=== PATIENT | female | born 1945 | race Caucasian/White ===

== ENCOUNTER 2017-04-05 08:28 | Day surgery (SDC) | payer MEDICARE ==
--- NOTE | ~2017-04-05 | EGD ---
EGD REPORT [facility] [address] [place] [address] NAME: VA DRAKE : [birth year] STATUS : REG [facility]#: [id number] AGE: 71 ADM/REG DATE : 04/05/17 MR#: [id number] REPORT SERV DATE: 04/05/17 DICTATED BY: SARAH MUSTAFA DATE: 04/05/17 REPORT STATUS : Draft TRANSCRIBED BY: [employer] DATE: 04/05/17 [facility] Center Patient Name: Va Drake Date of : 1945 Attending MD: SARAH MUSTAFA MD Procedure Date No Time: 04/05/2017 Procedure: Colonoscopy Indications: Clinically significant diarrhea of unexplained origin, FH of Colonic Polyps - 1st degree relative Referring MD: SHANTI GAMING Medicines: as per anesthesia Complications: No immediate complications. Procedure: Pre-Anesthesia Assessment: - ASA Grade Assessment: III - A patient with severe systemic disease. After I obtained informed consent, the scope was passed under direct vision. Throughout the procedure, the patient's blood pressure, pulse, and oxygen saturations were monitored continuously. The PCF [id number] was introduced through the anus and advanced to the cecum, identified by appendiceal orifice and ileocecal valve. The colonoscopy was somewhat difficult due to significant looping and a tortuous colon. The patient tolerated the procedure. The quality of the bowel preparation was adequate to identify polyps. Findings: The perianal and digital rectal examinations were normal. Internal hemorrhoids were found during endoscopy and were mild. Four biopsies were obtained in the rectum and in the ascending colon with cold forceps for histology. A few small-mouthed diverticula were found in the sigmoid colon. Impression: - Internal hemorrhoids. - Diverticulosis in the sigmoid colon. - Four biopsies were obtained in the rectum and in the ascending colon. Recommendation: - Await pathology results. - Repeat colonoscopy in 5 years for surveillance. Procedure Code(s): --- Professional --- 27743, Colonoscopy, flexible, proximal to splenic flexure; with biopsy, single or multiple EGD REPORT [facility] [address] [place] [address] NAME: VA DRAKE : [birth year] STATUS : REG [facility] PAT#: [id number] AGE: 71 ADM/REG DATE : 04/05/17 MR#: [id number] REPORT SERV DATE: 04/05/17 DICTATED BY: SARAH MUSTAFA DATE: 04/05/17 REPORT STATUS : Draft TRANSCRIBED BY: [employer] DATE: 04/05/17 Diagnosis Code(s): --- Professional --- K64.8, Other hemorrhoids K57.30, Diverticulosis of large intestine without perforation or abscess without bleeding R19.7, Diarrhea, unspecified Z83.71, Family history of colonic polyps CPT copyright 2013 [employer]. All rights reserved. The codes documented in this report are preliminary and upon machine filler shredder review may be revised to meet current compliance requirements. SARAH MUSTAFA MD 04/05/2017 11:31 AM This report has been signed electronically. Number of Addenda: 0 Note Initiated On: 04/05/2017 10:55 AM Scope Withdrawal Time 0 hours 8 minutes 16 seconds [address] [place] [address]
[~2017-04-05 08:28] MED LIST: ACET500CAP PO; ASAB PO; BYSTOLIC5 MG PO; CYANO1000T PO; DIOV160 PO; FERROUS SULF325 M1 PO; FOLIC PO; GLUCOPHAGE1000 MG PO; GLUCPH PO; GLUCXL5 PO; HALF81 PO; HYDROCODONE/APAP PO/LIQ; IRON PO; MEVACOR40 MG PO; NEUR300 PO; NEUR600 PO; OMNICEF300 PO; POTASSIUM PO; PRILO PO; REFRESH OPH; VENTOLIN HFA INH; VITAMIN B-122500 MCG SL; VITAMIN D31000 UNIT PO; X5 PO; ZINC GLUCON50 MG PO; ZITH250 PO; ZOL100 PO
== END 2017-04-05 23:59 | disposition home or self-care (01) ==
LOC: DMU 08:28
PROVIDERS: Internal Medicine Gastroenterology
PROC: 0DBK8ZX Excision of Ascending Colon, Via Natural or Artificial Opening Endoscopic, Diagnostic (ICD-10-PCS; 2017-04-05)
PROC: 0DBP8ZX Excision of Rectum, Via Natural or Artificial Opening Endoscopic, Diagnostic (ICD-10-PCS; principal; 2017-04-05 09:30)
DX: K64.8 Other hemorrhoids (principal); K57.30 Diverticulosis of large intestine without perforation or abscess without bleeding; G47.33 Obstructive sleep apnea (adult) (pediatric); E11.9 Type 2 diabetes mellitus without complications; I10 Essential (primary) hypertension; D64.9 Anemia, unspecified; K21.9 Gastro-esophageal reflux disease without esophagitis; E78.00 Pure hypercholesterolemia, unspecified; I34.1 Nonrheumatic mitral (valve) prolapse; Z98.41 Cataract extraction status, right eye; Z83.71 Family history of colonic polyps; Z98.42 Cataract extraction status, left eye; Z90.710 Acquired absence of both cervix and uterus; Z98.890 Other specified postprocedural states; Z87.01 Personal history of pneumonia (recurrent)
CPT/HCPCS: 82962; 88305

== ENCOUNTER 2017-07-16 22:40 | Emergency (ER) | payer MEDICARE ==
[2017-07-17 03:47] LABS: BASOPHILS 0.1 %; BASOPHILS 0.3 %; BASOPHILS ABSOLUTE 0.01 10/3/uL (0.0-0.16); BASOPHILS ABSOLUTE 0.02 10/3/uL (0.0-0.16); EOSINOPHILS 7.1 %; EOSINOPHILS 7.2 %; EOSINOPHILS ABSOLUTE 0.49 10/3/uL (0.0-0.53); HEMATOCRIT 32.8 % (36.0-48.0); HEMATOCRIT 33.6 % (36.0-48.0); HEMOGLOBIN 10.6 g/dL (12.0-16.0); HEMOGLOBIN 10.8 g/dL (12.0-16.0); IMMATURE GRANULOCYTES 0.1 %; IMMATURE GRANULOCYTES ABSOLUTE 0.01 10/3/uL (0.0-0.11); LYMPHOCYTES 29.4 %; LYMPHOCYTES ABSOLUTE 1.97 10/3/uL (0.67-4.30); LYMPHOCYTES ABSOLUTE 2.03 10/3/uL (0.67-4.30); MEAN CORPUS HGB CONC 32.9 g/dL (32.0-36.0); MEAN CORPUSCULAR HEMOGLOB 29.7 pg (26.0-34.0); MEAN CORPUSCULAR HEMOGLOB 30.9 pg (26.0-34.0); MEAN CORPUSCULAR VOLUME 94.1 fL (80-100); MEAN PLATELET VOLUME 8.3 fL (9.2-13.0); MEAN PLATELET VOLUME 8.5 fL (9.2-13.0); MONOCYTES 8.5 %; MONOCYTES ABSOLUTE 0.55 10/3/uL (0.21-1.20); MONOCYTES ABSOLUTE 0.58 10/3/uL (0.21-1.20); NEUTROPHILS 55.1 %; NEUTROPHILS ABSOLUTE 3.74 10/3/uL (2.02-8.40); PLATELET COUNT 160 10/3/uL (150-400); PLATELET COUNT 163 10/3/uL (150-400); RBC DISTRIBUTION WIDTH 13.6 % (12.0-16.0); RBC DISTRIBUTION WIDTH 13.7 % (12.0-16.0); RED CELL COUNT 3.49 10/6/uL (4.0-5.6); RED CELL COUNT 3.57 10/6/uL (4.0-5.6); WHITE BLOOD CELLS 6.8 10/3/uL (4.5-10.5); WHITE BLOOD CELLS 6.9 10/3/uL (4.5-10.5)
[2017-07-17 03:48] LABS: ER CBC TAT 0 Hrs 06 MinsNP; MANUAL DIFF NO %; MEAN CORPUS HGB CONC 31.5 g/dL (32.0-36.0)
[2017-07-17 03:56] LABS: INTERNATIONAL NORMAL RATI 0.9 UNITS (-); PARTIAL THROMBO TIME 26.1 SEC (22.5-37.2); PROTIME (NOT ORD) 12.3 SEC (12.0-14.5)
[2017-07-17 04:01] LABS: ALKALINE PHOSPHATASE 85 U/L (45-117); BUN (BLOOD UREA NITROGEN) 8 MG/DL (6-23); CALCIUM, SERUM 8.4 MG/DL (8.5-10.4); CALCIUM, SERUM 8.5 MG/DL (8.5-10.4); CHEST PAIN PROFILE TAT 0 Hrs 20 Mins; CHLORIDE, SERUM 94 MMOL/L (96-112); CHLORIDE, SERUM 95 MMOL/L (96-112); CO2 (CARBON DIOXIDE) 30 MMOL/L (24-34); CREATININE 0.96 MG/DL (0.55-1.02); CREATININE 0.97 MG/DL (0.55-1.02); GFR AFRICAN AMERICAN 67 ML/MIN (>=60); GFR AFRICAN AMERICAN 68 ML/MIN (>=60); GFR NON AFRICAN AMERICAN 58 ML/MIN (>=60); POTASSIUM, SERUM 3.6 MMOL/L (3.5-5.3); SGOT(AST) 17 U/L (5-40); SGPT(ALT) 19 U/L (5-65); TROPONIN I <0.02 NG/ML (<0.05)
[2017-07-17 04:05] LABS: A/G RATIO 1.2 (0.7-1.9); ALBUMIN 3.8 G/DL (3.5-5.0); GLOBULIN 3.2 G/DL (2.5-4.1); GLUCOSE, SERUM 105 MG/DL (60-99); SODIUM, SERUM 131 MMOL/L (135-148); TOTAL BILIRUBIN 0.6 MG/DL (0-1.2)
[2017-07-17 04:56] LABS: SED RATE 23 MM/HR (0-20)
== END 2017-07-17 07:12 | disposition home or self-care (01) ==
LOC: ER 22:40
PROVIDERS: Emergency Medicine; Nurse Practitioner Family
DX: J02.9 Acute pharyngitis, unspecified (principal); D64.9 Anemia, unspecified; E87.1 Hypo-osmolality and hyponatremia; E83.42 Hypomagnesemia; E11.65 Type 2 diabetes mellitus with hyperglycemia; I10 Essential (primary) hypertension; G30.9 Alzheimer's disease, unspecified; M35.00 Sjogren syndrome, unspecified; Z79.82 Long term (current) use of aspirin; Z79.84 Long term (current) use of oral hypoglycemic drugs; Z79.899 Other long term (current) drug therapy
CPT/HCPCS: 70491; 71020; 80048; 80053; 83735; 84484; 85025; 85610; 85652; 85730; 87070; 87880; 93005; 96374; 99284; A9270-GY; J2930; J3475; Q9967